=== PATIENT | male | born 1955 | race Two or more races ===

== ENCOUNTER 2019-08-19 13:02 | Emergency (ER) | payer SELFPAY ==
[~2019-08-19] VITALS: Ht 188 cm; Wt 75.0 kg
[2019-08-19] MEDS ORDERED: IBUPROFEN 600MG TABLET PO STA (14:28)
[2019-08-19] MEDS ORDERED: BACITRACIN ZINC OINT UDPKT TOP ONE (16:15)
[2019-08-19 17:10] VITALS: BP 122/79
== END 2019-08-19 17:12 | disposition home or self-care (01) ==
LOC: ER 13:02
DX: S92.534A Nondisplaced fracture of distal phalanx of right lesser toe(s), initial encounter for closed fracture (principal); W22.8XXA Striking against or struck by other objects, initial encounter; Y93.89 Activity, other specified; Y92.89 Other specified places as the place of occurrence of the external cause
CPT/HCPCS: 29515; 73630; 99283